=== PATIENT | male | born 1975 | race Caucasian/White ===

== ENCOUNTER 2016-06-28 22:07 | Emergency (ER) | payer SELFPAY ==
[~2016-06-28] VITALS: Ht 177.8 cm; Wt 118.2 kg
[2016-06-28 22:10] VITALS: BP 144/93; PULSE 84; RESP 20; O2SAT 100
--- NOTE | 2016-06-28 22:11 | ED.REPORT ---
HPI-Rash / Abscess Date of Service Jun 28, 2016 ED Provider: Fredis Gallardo MD Patient is a 40 year old male who presents to the ED complaining of an abscess to the top of his right ear that first developed a 1.5 weeks ago. Patient states that he first noticed a hard and red bump on his ear. Five days ago the abscess was drained at [facility]. However, he could not afford the prescribed antibiotics that he was meant to take after the I&D and therefore did not take them. Since that time he has experienced increased pain, redness, and swelling of this area. Patient admits to trying to drain the abscess at home as well. Patient admits to nausea but denies vomiting, fever, or chills. Patient denies a history of IV drug abuse or MSRA. Nursing Notes Stated Complaint: ABSCESS ON R EAR Chief Complaint: Skin Rash/Abscess Nursing Notes Reviewed: Yes Allergies: Coded Allergies: No Known Allergies (Unverified , 06/28/16) General Time Seen by MD: 22:10 Chief Complaint Abscess Hx Obtained From: Patient Arrived By: Walk-in Onset Occurred: More than a week ago... (1.5weeks ) Symptom Duration: Since onset Location: : Head/face (ears) Quality: Painful Severity: Current: Moderate Severity: Maximum: Moderate Recent Healthcare: No recent hospitalization, Recent doctor visit Similar Sx Previous: Yes Past Medical History Past Medical History Reports: Diverticulitis Past Surgical History none reported Smoking History Current Every Day Smoker Social History Alcohol Use: Denies alcohol use Drug Use: THC Other Social History: Good social support, Local resident Ambulatory Status Independent Review of Systems Review of Systems Note: + redness, swelling, and tenderness associated with right ear Constitutional: Denies: Chills, Fever GI: Reports: Nausea, Denies: Vomiting Complete sys rev & neg: except as marked. Physical Exam Initial Vital Signs Vital Signs (First) Date Time Temp Pulse Resp B/P Pulse Ox O2 Delivery O2 Flow Rate FiO2 06/28/16 22:10 36.2 84 20 144/93 100 Room Air Initial VS: Reviewed, Vital signs abnormal Neck: Supple, Non-tender, Full range of motion Extremities: Vascular intact, Neuro intact Neurologic: Alert, Oriented, Nonfocal Psychiatric: Mood/affect normal, Behavior normal, Normal thought content General/Constitutional: Awake, Alert, No acute distress Appearance / Presentation: Positive: Obese Skin: Warm, Dry Abscess #1 Location/Condition: Positive: Location (1x2cm elliptical shaped fluid collection in the concavity of the outer helix), Purulent discharge, Small , Tender Head / Eyes: Normocephalic, PERRL ENT: Airway patent, Mastoid area NL (nontender) Right Ear / Mastoid: Positive: Wink tender Respiratory / Chest: No respiratory distress, No stridor Cardiovascular: Heart rate NL, Cap refill not delayed Procedures Incision & Drainage Abscess Time: 22:55 Procedure Performed by: ED physician Consent / Setup / Site Prep: Consent from patient, Time-out performed, Hand hygiene observed, Stand sterile technique, Sterile drapes applied Location of Abscess: concavity of the outer helix, right ear Skin Preparation Agent: Shurclens Local Anesthesia: Lidocaine w epi 1% Incised Abscess with Scalpel: #11 Pus Drained: Small, Purulent discharge Irrigation: Yes, 50 cc Post-Procedure / Complications: Packing placed, Culture obtained, Gram stain ordered, Dressing applied, No complications, Condition improved, Tolerated procedure well, Patient stable Re-Eval/Medical Decision Med Decision/Clinical Course 40-year-old male with a reaccumulation of fluid collection on the outer helix of his right ear. This was drained a few days ago. He was given a prescription for an antibiotic but did not have the money to buy it. Tonight it was re-drained and cultured. A wick was placed. Clindamycin prepack was dispensed. He will return here in 2 days for me to recheck it and re-dress it. . Re-Evaluation/Progress : Time of Eval: 23:03 Patient Status: Condition improved Re-Evaluation/Progress Note: I&D preformed. Culture obtained. Dressing placed. Patient understands and agrees with the plan to be discharged home on antibiotics. Discharge instructions and follow-up discussed. He was instructed to follow-up in the ED for a recheck in 2 days. All questions were addressed. Return to the ED warnings given. Counseled Regarding: Diagnosis, Need for follow-up, When/why to return to ED Discharge & Departure Impression: Primary Impression: Abscess of right external ear Disposition: Home Discharge Condition All VS Reviewed: Yes Condition: Stable Patient Instructions: Abscess (ED), Abscess Incision and Drainage (ED) Additional Instructions: Keep the bandage and packing in place. Cover with the Tegaderm clear dressing for showering. Recheck here with me in the emergency room after 9 PM Thursday evening. Call me at [phone] Thursday night between 9 PM and 6 AM if you have any questions or concerns. Clindamycin 150 mg 2 pills 3 or 4 times daily for 10 days, prepack dispensed. Tylenol and/or ibuprofen as needed for pain. Scribe Attestation Portions of this note were transcribed by Xenia Sullivan. I, Dr. Gallardo personally performed the history, physical exam and medical decision-making; I reviewed and confirmed the accuracy of the information in the transcribed note. Signed by: Helene Gonzalez, 06/28/2016 [id number] Fredis Gallardo MD Jun 28, 2016 22:11 Xenia Sullivan Jun 28, 2016 22:16
[2016-06-28 23:58] VITALS: BP 129/89; PULSE 89; RESP 18; O2SAT 100
[2016-06-29] MEDS ORDERED: _Clindamycin 150 mg Capsule PO SCH (06:30)
== END 2016-06-28 23:59 | disposition home or self-care (01) ==
LOC: SED 22:07
DX: H60.01 Abscess of right external ear (principal); F17.200 Nicotine dependence, unspecified, uncomplicated